=== PATIENT | female | born 1940 | race Caucasian/White ===

== ENCOUNTER 2020-12-07 16:55 | Outpatient (REF) | payer MEDICARE, BC, SELFPAY ==
--- NOTE | ~2020-12-07 | MR_ITS ---
EXAMINATION: MR ABDOMEN WITHOUT AND WITH CONTRAST CLINICAL INFORMATION: Renal cyst COMPARISON: None. TECHNIQUE: MR abdomen was performed without and with use of 8.5 mL intravenous Gadavist gadolinium contrast. Postcontrast images are performed in multiphase dynamic sequences. Imaging was performed in 3 planes. FINDINGS: LUNG BASES: The visualized lung bases are unremarkable. LIVER, GALLBLADDER, AND BILIARY TREE: The liver is normal in size, smooth in contour, and normal in signal. No focal hepatic lesion or biliary ductal dilatation is present. The gallbladder is unremarkable with no evidence of gallbladder wall thickening, or obvious pericholecystic inflammatory changes. PANCREAS: Unremarkable. SPLEEN: Normal. ADRENAL GLANDS: Normal. KIDNEYS AND URETERS: There are two small 5 mm simple appearing cysts in the upper pole of the right kidney. There is a 1.1 x 1.2 cm lesion in the anterior mid pole of the right kidney. This is slightly low signal on T1-weighted sequences and slightly high signal on T2-weighted sequences. This demonstrates stellate septations with enhancement suggestive of a complex Bosniak type III cyst. There is mild fullness of the right renal collecting system. The left kidney is normal appearing. GASTROINTESTINAL TRACT: No bowel obstruction. There may be diverticulosis of the colon. No ascites or fluid collection. ABDOMINAL WALL: There is a small umbilical hernia containing fat. LYMPH NODES: No lymphadenopathy. VASCULAR: Unremarkable. OSSEOUS STRUCTURES: Marrow signal normal. There is scoliosis and degenerative changes of the spine. MR/MR abdomen wo/w con IMPRESSION: 1.1 x 1.2 cm complex right renal cyst with enhancing thickened septations. 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 Surgical excision recommended. Small simple cysts in the upper pole of the rectum right kidney. Mild fullness of the right renal collecting system.
[2020-12-07 17:38] LABS: Blood Urea Nitrogen 11 mg/dL (9-16); Estimated Glomerular Filt Rate > 60
== END 2020-12-07 16:56 | disposition home or self-care (01) ==
LOC: HO.MRI 16:55
PROVIDERS: PCP Internal Medicine; Visit Provider Urology
DX: N28.1 Cyst of kidney, acquired (principal)
CPT/HCPCS: 36415; 74183; 82565; 84520; A9585

== ENCOUNTER → 2021-02-10 09:06 | Outpatient (BNVA) | payer MEDICARE, BC, SELFPAY | DX: N28.1 Cyst of kidney, acquired (principal) | CPT/HCPCS: Q3014 ==

== ENCOUNTER 2021-12-11 16:47 | Outpatient (REF) | payer MEDICARE, BC, SELFPAY ==
[2021-12-11 18:17] LABS: Blood Urea Nitrogen 22 mg/dL (9-16); Estimated Glomerular Filt Rate > 60
== END 2021-12-11 16:48 | disposition home or self-care (01) ==
LOC: HO.LAB 16:47
PROVIDERS: PCP Internal Medicine
DX: N28.1 Cyst of kidney, acquired (principal)
CPT/HCPCS: 36415; 82565; 84520

== ENCOUNTER 2021-12-15 08:19 | Outpatient (REF) | payer MEDICARE, BC, SELFPAY ==
--- NOTE | ~2021-12-15 | CT_ITS ---
EXAMINATION: CT ABDOMEN WITHOUT AND WITH CONTRAST CLINICAL INFORMATION: Cyst of kidney. COMPARISON: MRI abdomen 12/09/2020. TECHNIQUE: Contiguous axial thin section helical images of the abdomen were performed before and after the administration of oral contrast and 85 mL of Omnipaque 350 intravenous contrast. The data set was reformatted in the coronal and sagittal planes and reviewed on an independent workstation. This CT examination was performed using dose optimization techniques as appropriate, variously including the following: *Automated exposure control *Adjustment of mA and/or kV according to patient size (this includes techniques or standardized protocols for targeted exams where dose is matched to indication/reason for exam; i.e. extremities or head) *Use of iterative reconstruction technique DLP: 607 mGy-cm FINDINGS: LUNG BASES: Minimal atelectasis/scarring is seen in the lingula. LIVER, GALLBLADDER, AND BILIARY TREE: The liver is homogeneous in density, normal size and contour. There is 3 mm focal calcification along the right hepatic dome. No focal lesion or intrahepatic ductal dilatation seen. PANCREAS: The pancreas is homogeneous in density, normal size. No focal lesion seen. SPLEEN: The spleen is unremarkable. ADRENAL GLANDS AND KIDNEYS: Bilateral adrenal glands are symmetrical and normal. Both kidney nephrograms are symmetrical and normal size. There is a 1.6 x 1.5 cm lesion upper/mid pole enhancing lesion in right kidney measuring 155 Hounsfield units on postcontrast study and 20 Hounsfield units on a precontrast exam not a simple cyst. There are punctate 3 mm cysts upper pole right kidney. No radiopaque calculi, caliectasis or hydronephrosis seen except for an extrarenal right kidney pelvis. BOWEL LOOPS: There is scattered stool and gas seen in the colon without any significant distention. LYMPH NODES: Normal. VASCULAR: Unremarkable. BONES: No lytic or sclerotic process seen. There is vacuum disc phenomenon at L3-L4 and L1-L2 disc levels with loss of disc height. CT/CT abdomen wo/w con IMPRESSION: 1.5 cm enhancing lesion midpole right kidney not a simple cyst. It is suspicious for primary renal lesion such as RCC. Recommend further evaluation. An extrarenal right kidney pelvis is seen. There are two punctate 3 mm cysts upper pole right kidney Fleischner guidelines were followed.
[2021-12-15] MEDS: iohexoL 350 MG/ML 100 ML INFUS..BTL IV (09:16)
== END 2021-12-15 08:20 | disposition home or self-care (01) ==
LOC: HO.CT 08:19
DX: N28.1 Cyst of kidney, acquired (principal)
CPT/HCPCS: 74170; Q9967

== ENCOUNTER → 2022-01-17 14:24 | Outpatient (BNVA) | payer MEDICARE, BC, SELFPAY | PROVIDERS: PCP Internal Medicine; Visit Provider Urology | DX: N28.1 Cyst of kidney, acquired (principal) | CPT/HCPCS: Q3014 ==

== ENCOUNTER 2023-02-06 11:04 | Outpatient (REF) | payer MEDICARE, BC, SELFPAY ==
--- NOTE | ~2023-02-06 | MR_ITS ---
EXAMINATION: MR ABDOMEN WITHOUT AND WITH CONTRAST CLINICAL INFORMATION: Kidney cyst COMPARISON: CT abdomen pelvis 12/15/2021 TECHNIQUE: MRI of the abdomen before and after the IV administration of 8 mL of Gadavist was obtained using routine sequences. FINDINGS: LUNG BASES: The visualized lung bases are unremarkable. KIDNEYS AND URETERS: Bosniak 1 benign-appearing bilateral renal cysts, no routine imaging follow-up recommended. Heterogeneous T2 signal heterogeneously enhancing right anterior midpole renal mass measuring 1.7 cm, previously 1.5 cm slightly increased in size and remains suspicious for renal cell carcinoma. GALLBLADDER: Unremarkable. LIVER AND BILIARY TREE: The liver is normal in signal and morphology. No suspicious liver lesion. No intra or extrahepatic biliary duct dilatation. PANCREAS: Unremarkable SPLEEN: Unremarkable ADRENAL GLANDS: Unremarkable GASTROINTESTINAL TRACT: Unremarkable. LYMPH NODES: No lymphadenopathy. VASCULAR: Circumaortic left renal vein. Single right renal artery and vein appear patent. ABDOMINAL WALL: Unremarkable. OSSEOUS STRUCTURES: Dextroconvex curvature of the lumbar spine. Multilevel degenerative disc disease. MR/MR kidney wo/w con IMPRESSION: 1. A 1.7 cm heterogeneously enhancing right anterior midpole renal mass, slightly increased in size from prior and remains suspicious for renal cell carcinoma. Recommend continued urologic evaluation and management.
[2023-02-06] MEDS: gadobutroL 10 ML VIAL IVPUSH (11:59)
== END 2023-02-06 11:05 | disposition home or self-care (01) ==
LOC: HO.MRI 11:04
PROVIDERS: Visit Provider Urology
DX: N28.1 Cyst of kidney, acquired (principal)
CPT/HCPCS: 74181; A9585

== ENCOUNTER 2023-03-01 11:05 | Outpatient (AMB) | payer MEDICARE, BC, SELFPAY ==
--- NOTE | 2023-03-01 11:06 | A.OFFVIS_ITS ---
Intake Intake Visit Reasons: 1Y MRI (KIDNEY)-(set) Intake Note: Patient is Present for Follow Up MRI Urology Medication: None Antibiotic Allergies: None Blood Thinners:None Pharmacy: [facility] Allergies No Known Allergies Allergy (Verified 03/01/23 11:09) Medication List - Last Reconciled 03/01/23 by Ash Esquivel MD anastrozole 1 mg PO DAILY exemestane 25 mg PO DAILY levothyroxine 25 mcg PO DAILY losartan 25 mg PO DAILY losartan 75 mg PO DAILY meloxicam 7.5 mg PO DAILY simvastatin 20 mg PO BEDTIME HPI HPI Comments History of Present Illness Details Betty is a very pleasant female. She is a patient of Dr. Cartagena. She is seen for the following urologic conditions - complex renal cyst Complex renal cyst follow-up Complex renal cyst Slight increase in size from prior year Continue with imaging Discussed potential for cryotherapy Imaging - 11/30 MRI 1.2 cm - 01/01 CT scan 1.6 cm with enhancement - 01/02 MRI 1.7cm enhancing right renal l esion Therapeutic plan - surveillance imaging [facility] Medical History History of high blood pressure Hyperdense renal cyst Microscopic hematuria Surgical History History of surgery Review of Systems Const Denies chills and Denies fever(s) Card Reports no additional complaints and Denies syncope Resp Denies cough GI Denies abdominal pain and Denies heartburn Reports as per HPI and Denies change in libido Neuro Denies syncope Psych Denies change in libido Endo Denies change in libido Physical Exam Const General: cooperative, healthy appearing, comfortable and no acute distress Orientation/consciousness: patient oriented x3 HEENT Face and sinus: Yes normal facial exam Mouth: moist mucous membranes Neck Neck: Yes normal visual inspection, Yes full ROM and Yes trachea midline Chest Chest palpation & inspection: normal inspection of the chest Resp Effort & Inspection: normal respiratory effort, able to speak in complete sentences and no respiratory distress GI Inspection: Yes normal to inspection Back/Spine/Pelvis Cervical Spine: normal cervical lordosis Thoracic/Lumbar Spine: thoracic and lumbar spine normal to inspection Skin General skin exam: no rashes or lesions noted Neuro General: patient oriented x3, gait normal, tone normal and moves all extremities Extrem General: Yes normal to inspection and Yes capillary refill normal Assessment & Plan Assessment & Plan (1) Complex renal cyst: Comment: Gonzalo Sapp Code(s): N28.1 - Cyst of kidney, acquired Plan Twelve month follow-up MRI Orders: Orders Blood Urea Nitrogen 364 Days N28.1 - Cyst of kidney, acquired MR kidney wo/w con 364 Days N28.1 - Cyst of kidney, acquired Creatinine 364 Days N28.1 - Cyst of kidney, acquired Patient Instructions: Imaging studies, laboratory and physical exam results were discussed and reviewed in detail. No major barriers to patient understanding were identified. An opportunity to ask questions regarding the treatment plan was provided. All questions were answered. The patient expressed understanding and agreement with the above treatment plan. The patient is aware they should contact our office by phone for worsening of their current condition or the appearance of new urologic symptoms. Compliance is encouraged with any medications and followup testing that is ordered. It is a privilege to participate in the urologic care of your patient. If you have any questions or concerns regarding treatment for the above conditions, or other urologic issues, please do not hesitate to contact me. The office telephone contact is [phone]. This note is constructed using voice recognition software. While every effort has been made to ensure accuracy training and development project leader errors may have been included. Yours sincerely, Dr Ash Esquivel MD, [facility] - Urology Providers of Expert, Compassionate Care for the Genitourinary System Coding Level of Care Code Est Pt Level 4 (88287) Diagnoses Complex renal cyst N28.1
== END 2023-03-01 11:41 | disposition home or self-care (01) ==
PROVIDERS: Visit Provider Urology
DX: N28.1 Cyst of kidney, acquired (principal)
CPT/HCPCS: 99214

== ENCOUNTER → 2023-03-01 11:05 | Outpatient (BNVA) | payer MEDICARE, BC, SELFPAY | PROVIDERS: Visit Provider Urology | DX: N28.1 Cyst of kidney, acquired (principal); R31.29 Other microscopic hematuria | CPT/HCPCS: 99212 ==

== ENCOUNTER 2024-02-28 11:15 | Outpatient (REF) | payer MEDICARE, BC, SELFPAY ==
--- NOTE | ~2024-02-28 | MR_ITS ---
EXAMINATION: MR ABDOMEN WITHOUT AND WITH CONTRAST CLINICAL INFORMATION: Renal cysts. COMPARISON: MRI dated February 06, 2023. TECHNIQUE: MR abdomen was performed without and with use of 7 mL intravenous Gadavist gadolinium contrast. Postcontrast images are performed in multiphase dynamic sequences. Imaging was performed in 3 planes. No reported immediate complications. FINDINGS: Submitted for interpretation on April 28, 2024. Limited by patient's breathing motion artifact. LIVER, GALLBLADDER, AND BILIARY TREE: Liver measures 13 cm. There is a 0.4 cm nonenhancing fluid signal characteristic lesion in the dome of the right hepatic lobe. Main portal veins, hepatic veins and intrahepatic portion of the IVC are patent. Gallbladder is fluid-filled. No pericholecystic fluid collection or gallbladder wall thickening. No intrahepatic or extrahepatic biliary ductal dilatation. PANCREAS: No focal mass. No peripancreatic fluid collection. No main pancreatic ductal dilatation. SPLEEN: 10 cm. No focal mass. ADRENAL GLANDS: No nodular lesions. KIDNEYS AND URETERS: Right kidney: There is a 1.8 cm exophytic hypointense T1, hyperintense T2, septated heterogeneously enhancing mass, anterior midportion. There are few scattered less than 0.9 cm nonenhancing fluid signal characteristic lesions, upper pole. No hydronephrosis. Normal enhancement pattern of the main renal vessels. No nodular lesions in the perinephric/pararenal compartment. Left kidney: There is a 0.7 cm, exophytic, isointense T1 and hyperintense T2 with focal hyperintense T2 component nonenhancing lesion in the lateral midportion There are few scattered, 0.5 cm and less nonenhancing fluid signal characteristic lesions throughout the renal parenchyma. No hydronephrosis. Main renal vessels are patent. No nodular enhancing lesion in the perinephric/pararenal compartment. GASTROINTESTINAL TRACT: Abundant stool. No intestinal obstruction pattern. No ascites. ABDOMINAL WALL: Small fat-containing umbilical hernia. LYMPH NODES: Nonspecific prominent less than 1 cm lymph nodes in the retroperitoneum/periaortic. VASCULAR: No aneurysm or dissection, abdominal aorta. Retroaortic trajectory of the left main renal vein. OSSEOUS STRUCTURES: Multilevel thoracolumbar spondylosis with incomplete ankylosis in the lower thoracic spine. Grade 1 anterolisthesis L4-5. S-shaped curvature of the thoracolumbar spine. Subcentimeter cyst in the right acetabulum. MR/MR abdomen wo/w con IMPRESSION: Bosniak type IV lesion, right kidney. Concerning for malignancy. Bosniak type II F lesion, left kidney. Electronically signed by: Murphy Ayers MD 04/28/2024 09:32 AM EST
[2024-02-28] MEDS: gadobutroL 7.5 ML VIAL IVPUSH (12:07)
== END 2024-02-28 11:16 | disposition home or self-care (01) ==
LOC: HO.MRI 11:15
PROVIDERS: Visit Provider Urology
DX: N28.1 Cyst of kidney, acquired (principal)
CPT/HCPCS: 74183; A9585

== ENCOUNTER → 2024-02-28 11:30 | Outpatient (BNV) | payer MEDICARE, BC, SELFPAY | PROVIDERS: Visit Provider Radiology Diagnostic Radiology | DX: N28.1 Cyst of kidney, acquired (principal) | CPT/HCPCS: 74183 ==

== ENCOUNTER 2024-03-04 09:26 | Outpatient (AMB) | payer MEDICARE, BC, SELFPAY ==
--- NOTE | 2024-03-04 09:32 | MHC.OFFVIS ---
Intake Visit Reasons: 1Y MRI(02/27) Intake Note: Patient is present for Kidney MRI Follow up Urology Med: None Antibiotic Allergy: None Blood Thinner: None Volcanologist Required: No Accompanied by: Self / Same As Patient Allergies No Known Allergies Allergy (Verified 03/04/24 09:34) HPI Comments Details: Betty is a very pleasant female. She is a patient of Dr. Cartagena. She is seen for the following urologic conditions - complex renal cyst Complex renal cyst follow-up MRI complete Follow-up 12 months Complex renal cyst Slight increase in size from prior year Continue with imaging Discussed potential for cryotherapy Imaging - 11/30 MRI 1.2 cm - 01/01 CT scan 1.6 cm with enhancement - 01/02 MRI 1.7cm enhancing right renal lesion - 01/03 MRI 1.7 cm enhancing right renal lesion stability remains Therapeutic plan - surveillance imaging [facility] Medical History History of high blood pressure Microscopic hematuria Hyperdense renal cyst Surgical History History of surgery Review of Systems Const Denies chills and Denies fever(s) Card Reports no additional complaints and Denies syncope Resp Denies cough GI Denies abdominal pain and Denies heartburn Reports as per HPI and Denies change in libido Neuro Denies syncope Psych Denies change in libido Endo Denies change in libido Physical Exam Const General: cooperative, healthy appearing, comfortable and no acute distress Orientation/consciousness: patient oriented x3 HEENT Face and sinus: Yes normal facial exam Mouth: moist mucous membranes Neck Neck: Yes normal visual inspection, Yes full ROM and Yes trachea midline Chest Chest palpation & inspection: normal inspection of the chest Resp Effort & Inspection: normal respiratory effort, able to speak in complete sentences and no respiratory distress GI Inspection: Yes normal to inspection Back/Spine/Pelvis Cervical Spine: normal cervical lordosis Thoracic/Lumbar Spine: thoracic and lumbar spine normal to inspection Skin General skin exam: no rashes or lesions noted Neuro General: patient oriented x3, gait normal, tone normal and moves all extremities Extrem General: Yes normal to inspection and Yes capillary refill normal Assessment & Plan Assessment & Plan (1) Complex renal cyst: Comment: Gonzalo 3 Code(s): N28.1 - Cyst of kidney, acquired Category: Medical Plan Twelve month follow-up Orders: Orders MR abdomen wo/w con 1 Year N28.1 - Cyst of kidney, acquired Blood Urea Nitrogen 364 Days N28.1 - Cyst of kidney, acquired Creatinine 364 Days N28.1 - Cyst of kidney, acquired Patient Instructions: Imaging studies, laboratory and physical exam results were discussed and reviewed in detail. No major barriers to patient understanding were identified. An opportunity to ask questions regarding the treatment plan was provided. All questions were answered. The patient expressed understanding and agreement with the above treatment plan. The patient is aware they should contact our office by phone for worsening of their current condition or the appearance of new urologic symptoms. Compliance is encouraged with any medications and followup testing that is ordered. It is a privilege to participate in the urologic care of your patient. If you have any questions or concerns regarding treatment for the above conditions, or other urologic issues, please do not hesitate to contact me. The office telephone contact is [phone]. This note is constructed using voice recognition software. While every effort has been made to ensure accuracy press tender short goods errors may have been included. Yours sincerely, Dr Ash Esquivel MD, [facility] - Urology Providers of Expert, Compassionate Care for the Genitourinary System Coding Level of Care Code Est Pt Level 4 (89518) Diagnoses Complex renal cyst N28.1
== END 2024-03-04 10:00 | disposition home or self-care (01) ==
PROVIDERS: PCP Internal Medicine; Visit Provider Urology
DX: N28.1 Cyst of kidney, acquired (principal)
CPT/HCPCS: 99214

== ENCOUNTER → 2024-03-04 09:26 | Outpatient (BNVA) | payer MEDICARE, BC, SELFPAY | PROVIDERS: PCP Internal Medicine; Visit Provider Urology | DX: N28.1 Cyst of kidney, acquired (principal) | CPT/HCPCS: 99212 ==

== ENCOUNTER → 2025-03-01 11:06 | Outpatient (BNV) | payer MEDICARE, BC, SELFPAY | PROVIDERS: PCP Family Medicine; Visit Provider Radiology Diagnostic Radiology | DX: N28.89 Other specified disorders of kidney and ureter (principal); N28.1 Cyst of kidney, acquired | CPT/HCPCS: 74183 ==

== ENCOUNTER 2025-03-01 11:10 | Outpatient (REF) | payer MEDICARE, BC, SELFPAY ==
--- NOTE | ~2025-03-01 | MR_ITS ---
EXAMINATION: MR ABDOMEN WITHOUT THEN WITH IV CONTRAST HISTORY: N28.1 - Cyst of kidney, acquired COMPARISON: There are no prior studies available for comparison. TECHNIQUE: Axial in and out of phase T1-weighted gradient echo, axial diffusion weighted, and axial and coronal HASTE T2 with fat saturation images were obtained through the abdomen. Subsequently, fat suppressed axial and coronal T1-weighted images were obtained after the intravenous administration of 7 mL Gadavist. FINDINGS: Liver: There is no loss of signal intensity in the liver on opposed phase imaging to suggest steatosis. There is no enhancing liver mass. The hepatic and portal veins are patent. There is no intrahepatic biliary dilatation. Gallbladder/biliary tree: No gallstones are identified. The common bile duct is normal in caliber. No intraluminal filling defects are identified to suggest choledocholithiasis. Spleen: The spleen is unremarkable. Pancreas: The pancreas is unremarkable. There is no enhancing pancreatic mass. The pancreatic duct is normal in caliber. Adrenals: The adrenal glands are unremarkable. Kidneys: There are tiny subcentimeter cyst at the upper pole of the right kidney. Again seen is a 1.7 cm enhancing mass at the anterior aspect of the interpolar region of the right kidney, highly suspicious for neoplasm. The size is unchanged from the prior study, but increased since 12/07/2020. The left kidney is unremarkable. There is no hydronephrosis. Lymph nodes: There is no retroperitoneal lymphadenopathy in the upper abdomen. Fluid: There is no ascites in the upper abdomen. Visualized bowel: The visualized small and large bowel loops are unremarkable in appearance. Visualized bones: There is scoliosis of the spine. MR/MR abdomen wo/w con IMPRESSION: 1.4 cm enhancing right renal mass, highly suspicious for neoplasm. This is unchanged in size from the most recent prior study. Continued follow-up is recommended if no surgery is planned. Electronically signed by: Vikas Gutiérrez MD 03/01/2025 12:31 PM EDT
--- OUTSIDE RECORDS SUMMARY | 2025-03-01 13:41 | XMS_ITS | Encounter Summary ---
Author Organization [facility] Address [address] [place] [id number] Phone Care Team Providers Care Command And Control Specialist Name Role Phone Kenneth Flowers MD Primary Care Provider Kenneth Flowers MD Unavailable Mira Xavier MD Primary Care Provider [phone] Encounter Details Date Type Department Care Team (Late st Contact Info) Description 11/18/2018 Procedure Pass [facility] IMG OUTSIDE IMG [address] [place] [address] Social History Tobacco Use Types Packs/Day Years Used Date Smoking Tobacco: Never Assessed Comments Unknown Sex and Gender Information Value Date Recorded Sex Assigned at Not on file Legal Sex Female 6:09 PM EST Gender Identity Not on file Sexual Orientation Not on file documented as of this encounter Plan of Treatment Upcoming Encounters Date Type Department Care Team (Late st Contact Info) Description 03/02/2025 10:[address] [facility] [address] [place] [address] Roni Huynh DPM [address] [place] [id number] [email or web address] 03/02/2025 10:30 AM EDT Office Visit [facility] Orthopedics [facility] [address] [place] [address] Roni Huynh, DPM [address] [place] [address] [email or web address] documented as of this encounter Visit Diagnoses Not on filedocumented in this encounter Care Teams Command And Control Specialist Relationship Specialty Start Date End Date Kenneth Flowers MD [address] [place] [address] PCP - General Internal Medicine 11/05/18 02/14/25 Mira Xavier MD [address] [place] [id number] PCP - General Family Medicine 02/15/25 Kenneth Flowers MD [address] [place] [id number] Referring Physician Internal Medicine 11/05/18 documented as of this encounter Additional Source Comments The information contained in this document represents components of the legal health record. It is not the complete legal health record.[facility]
--- OUTSIDE RECORDS SUMMARY | 2025-03-01 13:41 | XMS_ITS | Patient Health Record ---
Author Organization [facility] Address [address] [facility] [place] [address] Care Team Providers Care Hunter Name Role Phone Mckinley Jason MA Primary Care Provider Unavailab jesus LizandrojeseniaJuanito knutson Unavailable [phone] Reason For Referral No Information Medications Medication SIG (Take, Route, Frequency, Duration) Notes Start Date End Date Status Simvastatin 20 MG 1 tablet in the even ing Orally Once a day; Duration: 30 day(s) Active Lisinopril 2.5 MG 1 tablet Orally Once a day; Duration: 30 day(s) Active Piroxicam 20 MG 1 capsule with food Orally Once a day; Duration: 30 day(s) 03/11/2012 Active Levothyroxine Sodium .025 mg as directed Orally Active Problems Problem Type SNOMED Code ICD Code Onset Dates Problem Status W/U Status Risk Notes Problem Disorder of joint of ankle and/or foot (750845515) Arthritis - Degenerative (719.97) Active confirmed Problem Neuralgia - Neuritis (729.2) Active confirmed Problem Hallux valgus (043247835) Hallux Valgus (735.0) Active confirmed Problem Hammer toe (335543222) Hammer toe (735.4) Active confirmed Problem 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, Congenital (754.61) Active confirmed Problem Pain in limb (98439396) Pain in Limb (729.5) Active confirmed Plan Of Treatment Pending Test Test Name Order Date X ray : Foot, left 2V 01/29/2012 X ray : Foot, right 2V 01/29/2012 Insurance Providers Payer Name Payer Address Payer Phone Subscriber Number Group Number Insured Name Patient Relationship to Insured Coverage Start Date Coverage End Date Medicare National [employer]t [employer] [address] Emiliajamal ELZA velazquez [phone] [id number] Betty Mtz Self - patient is the insured [address] [facility] [employer] Others [address] [place] [address] [phone] [id number] Betty Mtz Self - patient is the insured Medical (General) History Medical History History ICD Code chicken pox high blood pressure hypercholesterolemia measles mumps thyroid disorder Surgical History Surgery Date(Month/Year) bladder surgery 17 yrs section 1979, 1977, 1976
--- OUTSIDE RECORDS SUMMARY | 2025-03-01 13:42 | XMS_ITS ---
Author Name [facility] Organization Unknown Care Team Organization Name Specialty Phone Email Start Date End Da te [facility]) FRANCESCO STRAUSS Primary Care 11/09/2022 0712/2022 [facility]) [facility] Primary Care 11/09/2022 11/09/2022
--- OUTSIDE RECORDS SUMMARY | 2025-03-01 13:42 | XMS_ITS | Clinical Summary ---
Author Organization [facility] Address [address] [place] [address] Phone Care Team Providers Care Clothes Model Name Role Phone Kenneth Flowers MD Unavailable [phone] Mira Xavier MD Primary Care Provider [phone] Allergies No known active allergies Medications levothyroxine (SYNTHROID,LEVOT HROID) 25 MCG tablet Take 25 mcg by mouth daily. 2 09/05/2018 Active simvastatin (ZOCOR) 20 MG tablet Take 20 mg by mouth daily. 2 10/09/2018 Active lisinopril (PRINIVIL,ZESTRI L) 2.5 MG tablet Take 2.5 mg by mouth daily. 2 09/05/2018 Active ibuprofen (ADVIL,MOTRIN) 200 MG tablet Take 200 mg by mouth every 6 (six) hours as needed. Active aspirin 81 MG EC tablet Take 81 mg by mouth daily. Active Active Problems Problem Noted Date Diagnosed Date Cyst of right kidney 11/24/2018 Assessment & Plan (11/24/2018 4:30 PM EDT): Assessment: Betty Mtz is a 78 y.o. female with a recent diagnosis of a right renal mass concerning for renal cell carcinoma. The available imaging suggests organ confined disease. She has good performance status and normal renal function. Plan: 1. I spent this consultation with Betty Mtz discussing the natural history and management of renal cysts. I explained that renal cysts are common occuring in 10% to 35% of the general population being approximately twice as common in men compared to women. The size and number of renal cysts increase with age. Simple cysts (Bosniak I) tend to grow slowly over time, on average < 2mm a year. Faster growth rates have been observed in more complex cysts (Bosniak II-IV). Based on the available imaging, Ms. Mtz has a Bosniak 2F or 3 cyst. These cysts may harbor malignancy but they have a highly favorable natural history and an extremely low risk for metastatic disease. 2. We discussed the role and rationale for possible treatment options including active surveillance, ablative therapies, or surgery. With respect to surgery, we discussed the use of a partial and radical nephrectomy, as well as open and minimally invasive approaches. The risks of surgery including bleeding, infection, injury to surrounding structure, failure to cure, renal insufficiency, urinary extravasation, deep venous thrombosis, pulmonary embolism, stroke, heart attack, and loss of life were discussed. 3. Ms. Mtz is comfortable proceeding with active surveillance and will see her home urologist in 6 months with repeat imaging to monitor the right renal mass for interval changes. Encounters Date Type Department Care Team Description 02/25/2025 Orders Only [facility] Orth[facility]ics at [address] [address] Roni Huynh DPM Pain (Primary Dx) from Last 3 Months Family History Medical History Relation Comments Lymphoma Father Relation Status Comments Father Social History Tobacco Use Types Packs/Day Years Used Date Smoking Tobacco: Former Cigarettes Q uit: 1979 Education Answer Date Recorded Are you interested in more education? Not on esther e 09/23/2022 Are you concerned about learning? Not on file 09/23/2022 No 09/23/2022 No 09/23/2022 Digital Access Answer Date Recorded No 10/06/2022 No 10/06/2022 No 10/06/2022 Reliable internet access at home? Not on file 10/06/2022 Device with a working camera? Not on file Comments Unknown Sex and Gender Information Value Date Recorded Sex Assigned at Not on file Legal Sex Female 6:09 PM EST Gender Identity Not on file Sexual Orientation Not on file Last Filed Vital Signs Vital Sign Reading Time Taken Comments Blood Pressure 135/62 11/18/2018 2:34 PM EDT Pulse 84 11/18/2018 2:34 PM EDT Temperature 36.4 C (97.6 F) 11/18/2018 2:34 PM EDT Respiratory Rate 18 11/18/2018 2:34 PM EDT Oxygen Saturation 97% 11/18/2018 2:34 PM EDT Inhaled Oxygen Concentration - - Weight 79.6 kg (175 lb 7.8 oz) 11/18/2018 2:34 P M EDT dfci Height 159 cm (5' 2.6 ) 11/18/2018 2:34 PM EDT d correction Body Mass Index 31.49 11/18/2018 2:34 PM EDT Plan of Treatment Upcoming Encounters Date Type Department Care Team (Late st Contact Info) Description 03/02/2025 10:15 AM EDT Appointment [facility] [address] [place] [address] Roni Huynh DPM [address] [place] [phone] [email or web address] 03/02/2025 10:30 AM EDT Office Visit [facility] Orthopedics [facility] [address] [place] [address] Roni Huynh DPM [address] [place] [phone] [email or web address] Health Maintenance Due Date Last Done Comments Adult Td,Tdap Booster 1942 TSH LEVEL 1942 DEPRESSION SCREENING 1954 PNEUMOCOCCAL VACCINES (50+ years) (1 of 1 - PCV) 1992 OSTEOPOROSIS SCREENING INITI AL (ONE-TIME) 2007 CREATININE LEVEL 03/11/2015 03/11/2014 POTASSIUM LEVEL 03/11/2015 03/11/2014 RSV VACCINE (1 - 1-dose 75+ series) 2017 INFLUENZA VACCINE (#1) 2024 0, 02/25/2019, 03/06/2018 COVID-19 VACCINE (3 - 2024-2 6 season) 2025 07/02/2020, 06/10/2020 ZOSTER VACCINES Completed 06/17/2019, 03/21/2019 HEPATITIS A VACCINES Aged Out No long er eligible based on patient's age to complete this topic HIB VACCINES Aged Out No longer eligi ble based on patient's age to complete this topic MENINGOCOCCAL VACCINES (ACWY) Aged Out No longer eligible based on patient's age to complete this topic MENINGOCOCCAL VACCINES (B) Aged Out N o longer eligible based on patient's age to complete this topic Medical Devices Not on file Procedures Procedure Name Priority Date/Time Associated Diagnosis Comments HISTORICAL LAB Routine 03/11/2014 4:24 PM EDT from Last 3 Months or Most Recently Relevant to Health Maintenance Results * (ABNORMAL) Historical Lab (03/11/2014 4:24 PM EDT) LDL CHOLESTEROL 149(Abnor florina H) 0 - 129 mg/dL [facility] Comment: LDL cholesterol, mg/dL (mmol/L): <100 Optimal 100-129 Near or above optimal 130-159 Borderline high 160-189 High >=190 Very high SODIUM 137 136 - 145 mmol/L [facility] POTASSIUM 4.4 3.5 - 5.2 mmol/L [facility] CHLORIDE 97(Abnorm ally L) 99 - 109 mmol/L [facility] CARBON DIOXIDE 29 20 - 31 mmol/L [facility] ANION GAP 11 4.0 - 14.0 [facility] CALCIUM 9.6 8.7 - 10.4 mg/dL [facility] GLUCOSE 88 74 - 106 mg/dL [facility] UREA NITROGEN (BUN) 18 9 - 23 mg/dl [facility] CREATININE 0.54 0.5 - 1.3 mg/dL [facility] EST GLOM FILT RATE NON- A 118.3 [facility] Comment:Units: ml/min/1.73ms q EST GLOM FILT RATE AMERI 143.1 [facility] Comment: Units: ml/min/1.73msq Reference Table for Population Mean GFRs AGE AVERAGE GFR 20-29 116 ml/min/1.73msq 30-39 107 ml/min/1.73msq 40-49 99 ml/min/1.73msq 50-59 93 ml/min/1.73msq 60-69 85 ml/min/1.73msq 70+ 75 ml/min/1.73msq STAGE GFR* DESCRIPTION 1 90+ NORMAL KIDNEY FUNCTION 2 60-89 MILDLY REDUCED KIDNEY FUNCTION 3A 45-59 MODERATELY REDUCED KIDNEY 3B 30-44 FUNCTION 4 15-29 SEVERELY REDUCED KIDNEY FUNCTION 5 <15 OR ON VERY SEVERE, OR ENDSTAGE KIDNEY DIALYSIS FAILURE TOTAL PROTEIN 6.5 5.7 - 8.2 g/dL [facility] ALBUMIN 4.2 3.5 - 4.8 g/dL [facility] AST 23 6 - 40 U/L [facility] ALT 28 10 - 49 U/L [facility] ALKALINE PHOSPHATASE 67 27 - 129 U/L [facility] TOTAL BILIRUBIN 0.2 0.0 - 1.0 mg/dL [facility] TRIGLYCERIDE 163(Abnor florina H) <150 mg/dL [facility] Comment: Normal <150 mg/dL Border-high 150-199 mg/dL High triglycerides 200-499 mg/dL Very high triglycerides >=500 mg/dL HDL CHOLESTEROL 53 >40 mg/dL [facility] Comment: HDL cholesterol, mg/dL (mmol/L): <40 Low >=60 High 03/11/2014 4:24 PM EDT 03/11/2014 4:50 PM EDT us Conversion Provider Not In Sys LAB BLOOD ORDERAB LES Final Result [facility] [address] [facility] [place] [id number] from Last 3 Months or Most Recently Relevant to Health Maintenance Insurance MEDICARE PART A & B [facility] [place] [id number] MEDICARE PART A & [place] [id number] MEDICARE PART A & [place] [id number] MEDICARE PART A & B [place] OUT OF STATE PPO MEDICARE PART A & [place] [id number] MEDICARE PART A & B [facility] PPO MEDICARE PART A & B [place] OUT OF STATE PPO MEDICARE PART A & [place] [id number] MEDICARE PART A & B Member Subscriber Plan / Payer ( fective 2007-Present) Name:Trudy Mtzureen Member ID:[id number] Relation to Subscriber:Self Name:Betty Mtz Subscriber ID:[id number] Payer ID:[id number] Group ID:Not on file Type:Medicare Address: [facility] [address] [facility] PPO Care Teams Clothes Model Relationship Specialty Start Date End Date Mira Xavier MD [address] [place] [address] PCP - General Family Medicine 02/15/25 Kenneth Flowers MD [address] [place] [address] Referring Physician Internal Medicine 11/05/18 Additional Source Comments The information contained in this document represents components of the legal health record. It is not the complete legal health record.[facility]
--- OUTSIDE RECORDS SUMMARY | 2025-03-01 13:42 | XMS_ITS | Encounter Summary ---
Author Organization [facility] Address [address] [place] [address] Phone Care Team Providers Care Actimize Architect Name Role Phone Kenneth Flowers MD Unavailable [phone] Mira Xavier MD Primary Care Provider [phone] Encounter Details Date Type Department Care Team ([facility] st Contact Info) Description 02/25/2025 Orders Only [facility] Orthopedics at [place] [address] [place] [address] Roni Huynh, PRESTON [address] [place] [phone] [email or web address] Pain (Primary Dx) Social History Tobacco Use Types Packs/Day Years [...] Info) Description 03/02/2025 10:15 AM EDT Appointment [facility] [address] [place] [address] Roni Huynh, DPM [address] [place] [address] [email or web address] 03/02/2025 10:30 AM EDT Office Visit [facility] Orthopedics [facility] [address] [place] [address] Roni Huynh, PRESTON [address] [place] [address] [email or web address] Scheduled Orders Name Type Priority Associated Diagnoses Orde r Schedule XR Foot (Right) Imaging Routine Pain Expected: 03/02/2025, Expires: 02/25/2026 documented as of this encounter Visit Diagnoses Diagnosis Pain- Primary Generalized pain documented in this encounter Care Teams Actimize Architect Relationship Specialty Start Date End Date Mira Xavier MD [address] [place] [address] PCP - General Family Medicine 02/15/25 Kenneth Flowers MD [address] [place] [address] Referring Physician Internal Medicine 11/05/18 documented as of this encounter Additional Source Comments The information contained in this document represents components of the legal health record. It is not the complete legal health record.[facility]
--- OUTSIDE RECORDS SUMMARY | 2025-03-01 13:42 | XMS_ITS | Encounter Summary ---
Author Organization [facility] Address [address] [address] Care Team Providers Care Camp Dining Room Attendant Name Role Phone Pcp, Irma Primary Care Provider [phone] Encounter Details Date Type Department Care Team (Late st Contact Info) Description 11/12/[address] [facility] [address] [place] [id number] Gilma Tapia MD [address] [place] [address] Social History Tobacco Use Types Packs/Day Years Used Date Smoking Tobacco: Never Smokeless Tobacco: Never Alcohol Use Standard Drinks/Week Comments Yes 0 (1 standard drink = 0.6 oz pur e alcohol) Comments No Sex and Gender Information Value Date Recorded Sex Assigned at Female 01/01/2024 1:52 PM EDT Legal Sex Female 3:22 PM EDT Gender Identity Female 01/01/2024 1:52 PM EDT Sexual Orientation Straight 01/01/2024 1: 52 PM EDT documented as of this encounter Plan of Treatment Not on file documented as of this encounter Visit Diagnoses Not on filedocumented in this encounter Care Teams Camp Dining Room Attendant Relationship Specialty Start Date End Date Pcp, No [address] [place] [address] PCP - General Internal Medicine 11/01/22 documented as of this encounter
--- OUTSIDE RECORDS SUMMARY | 2025-03-01 13:43 | XMS_ITS | Clinical Summary ---
Author Organization [facility] Address [address] [place] [address] Care Team Providers Care Business Solutions Consultant Name Role Phone Pcp, No Primary Care Provider [phone] Allergies Active Allergy Reactions Criticality Noted Date Comments Celecoxib Hives 11/02/2022 Medications losartan (COZAAR) 50 MG tablet TAKE 1 & 1/2 TABLET BY MOUTH EVERY DAY FOR 90 DAYS 09/24/2022 Active levothyroxine (SYNTHROID) 25 MCG tablet Take ONE tablet (25 mcg total) by mouth once daily. 09/19/2022 Active ibuprofen (MOTRIN) 200 MG tablet Take ONE tablet (200 mg total) by mouth Every 6-8 hours As Needed. Active aspirin 81 MG EC tablet Take ONE tablet (81 mg total) by mouth. Active simvastatin (ZOCOR) 10 MG tablet Take ONE tablet (10 mg total) by mouth nightly. Active meloxicam (MOBIC) 15 MG tablet Take ONE tablet (15 mg total) by mouth daily. Active Family History Medical History Relation Name Comments No Known Problems Father No Known Problems Mother Relation Name Status Comments Father Mother Social History Tobacco Use Types Packs/Day Years Used Date Smoking Tobacco: Never Smokeless Tobacco: Never Tobacco Cessation:Counseling Given: Not Answered Alcohol Use Standard Drinks/Week Comments Yes 0 (1 standard drink = 0.6 oz pur e alcohol) Comments No Sex and Gender Information Value Date Recorded Sex Assigned at Female 01/01/2024 1:52 PM EDT Legal Sex Female 3:22 PM EDT Gender Identity Female 01/01/2024 1:52 PM EDT Sexual Orientation Straight 01/01/2024 1: 52 PM EDT Last Filed Vital Signs Vital Sign Reading Time Taken Comments Blood Pressure 131/80 11/02/2022 2:55 PM EDT Pulse 81 11/02/2022 2:55 PM EDT Temperature - - Respiratory Rate - - Oxygen Saturation - - Inhaled Oxygen Concentration - - Weight 83.5 kg (184 lb) 11/02/2022 2:55 PM EDT Height 157.5 cm (5' 2 ) 11/02/2022 2:55 PM EDT Body Mass Index 33.65 11/02/2022 2:55 PM EDT Plan of Treatment Health Maintenance Due Date Last Done Comments PNEUMOCOCCAL POLYSACCHARIDE VACCINE AGE 65 AND OVER COVID-19 Vaccine ( season) 2025 INFLUENZA VACCINE 01/11/2025 Insurance [facility] [place] [id number] [facility] [place] [id number] [employer]Sled [facility] OTHER MEDICARE [facility] [place] [id number] [employer]Sled [facility] OTHER Member Subscriber Plan / Payer (Ef fective 2021-Present) Name:Smith Betty Relation to Subscriber:Spouse Name:JAQUELINE MTZ Date of :1897 (Home) Address: [address] [place] [id number] Payer ID:Not on file Type:Not on file Address: [place] [id number] [place] [id number] [place] OTHER MEDICARE [facility] OTHER MEDICARE Coupay PARLIER Coupay [facility] OTHER MEDICARE [facility] [place] [id number] [facility] Coupay [facility] [place] [id number] [facility] OTHER MEDICARE [facility] [place] [id number] [employer] OTHER Member Subscriber Plan / Payer (Ef fective 2021-Present) Name:Betty Mtz Relation to Subscriber:Spouse Name:JAQUELINE MTZ Date of :1897 (Home) Address: [address] [place] [address] Payer ID:Not on file Type:Not on file Address: [address] [id number] [place] [address] [employer] OTHER MEDICARE [id number] [place] [address] OTHER MEDICARE [employer] OTHER MEDICARE BL[employer] OTHER MEDICARE [place] OTHER MEDICARE [employer]led [place] OTHER MEDICARE [facility] OTHER MEDICARE [place] OTHER MEDICARE [place] OTHER MEDICARE [facility] OTHER MEDICARE [employer] OTHER MEDICARE BL[employer] OTHER MEDICARE [place] OTHER MEDICARE Coupay [employer] OTHER MEDICARE [facility] OTHER MEDICARE [place] [phone] [place] [id number] [facility] [place] [id number] [facility] OTHER MEDICARE [facility] [place] [id number] [place] [id number] [employer] OTHER MEDICARE [employer]led [facility] OTHER MEDICARE [facility] Coupay [facility] OTHER MEDICARE [facility] Coupay [facility] OTHER MEDICARE [facility] OTHER MEDICARE Coupay [employer] OTHER MEDICARE Coupay [employer] OTHER MEDICARE [facility] OTHER MEDICARE [employer] OTHER MEDICARE BLUE [employer] BL[employer] OTHER MEDICARE [place] OTHER MEDICARE Record[employer]led [place] OTHER MEDICARE [facility] BLUE [facility] OTHER MEDICARE RecordSled [employer] OTHER MEDICARE Record[employer]led [place] OTHER MEDICARE [facility] [place] [place] [id number] [employer] [id number] [employer] [place] [phone] [place] [id number] [place] OTHER MEDICARE [facility] OTHER MEDICARE [place] OTHER MEDICARE RecordSled [facility] [place] [id number] [facility] OTHER [place] [id number] [facility] Coupay [facility] OTHER Member Subscriber Plan / Payer (Ef fective 2021-Present) Name:Betty Mtz Relation to Subscriber:Spouse Name:JAQUELINE MTZ Date of :1897 (Home) Address: [address] [place] [address] Payer ID:Not on file Type:Not on file Address: [place] [id number] MEDICARE [facility] OTHER [place] [id number] [employer] OTHER MEDICARE [place] OTHER MEDICARE [facility] OTHER MEDICARE [facility] OTHER MEDICARE [facility] OTHER MEDICARE Coup[employer] OTHER MEDICARE Coupay [employer] OTHER MEDICARE [id number] [place] [address] OTHER MEDICARE [facility] [place] [phone] [employer] BL[employer] OTHER MEDICARE [facility] [place] [id number] [employer] BL[employer] OTHER MEDICARE [employer]led [employer] OTHER MEDICARE Coupay CROSS Coupay [place] OTHER MEDICARE [facility] OTHER MEDICARE MEDEM [employer] OTHER MEDICARE Record[employer]led [place] OTHER MEDICARE [facility] OTHER [place] [id number] [employer] OTHER [place] [id number] [employer] OTHER MEDICARE [facility] OTHER MEDICARE Coupay [employer] OTHER MEDICARE Coupay [employer] Coupay [facility] OTHER MEDICARE [facility] [id number] [place] [phone] [facility] Coupay [facility] OTHER Member Subscriber Plan / Payer (Ef fective 2021-Present) Name:Betty Mtz Relation to Subscriber:Spouse Name:JAQUELINE MTZ Date of :1897 (Home) Address: [address] [place] [address] [place] [address] Payer ID:Not on file Type:Not on file Address: [place] [id number] [place] [id number] [place] [phone] [facility] [place] [id number] [facility] [place] [phone] C[employer] OTHER MEDICARE Coupay [employer] OTHER MEDICARE Coupay [employer] OTHER MEDICARE Coupay [employer] Coupay [facility] OTHER MEDICARE [facility] OTHER MEDICARE C[place] [phone] Coup[employer] OTHER MEDICARE [id number] [place] [address] OTHER MEDICARE [employer] BL[employer] OTHER MEDICARE [employer] BL[employer] OTHER MEDICARE [place] OTHER MEDICARE Coupay [employer] OTHER MEDICARE [facility] OTHER MEDICARE [place] [id number] [employer] [phone] [facility] [place] [id number] [facility] [place] [id number] [employer] [facility] OTHER MEDICARE [facility] [place] [id number] [employer] [facility] OTHER Member Subscriber Plan / Payer (Ef fective 2021-Present) Name:Smith Betty Relation to Subscriber:Spouse Name:JAQUELINE MTZ Date of :1897 (Home) Address: [address] [place] [address] Payer ID:Not on file Type:Not on file Address: [place] [id number] [place] [phone] [place] OTHER MEDICARE [facility] OTHER MEDICARE Coupay PARLIER Coupay [facility] OTHER MEDICARE [facility] [place] [id number] [facility] Coupay [facility] [place] [id number] [facility] OTHER MEDICARE [facility] [place] [phone] [employer] OTHER Member Subscriber Plan / Payer (Ef fective 2021-Present) Name:Betty Mtz Relation to Subscriber:Spouse Name:JAQUELINE MTZ Date of :1897 (Home) Address: [address] [place] [address] Payer ID:Not on file Type:Not on file Address: [address] [id number] [place] [address] [employer] OTHER MEDICARE [id number] [place] [address] OTHER MEDICARE [employer] OTHER MEDICARE BL[employer] OTHER MEDICARE [place] OTHER MEDICARE [employer] OTHER MEDICARE [facility] OTHER MEDICARE [place] OTHER MEDICARE [place] OTHER MEDICARE [facility] OTHER MEDICARE [employer] OTHER MEDICARE BL[employer] OTHER MEDICARE [place] OTHER MEDICARE Coupay [employer] OTHER MEDICARE [facility] OTHER MEDICARE [employer] [address] [place] [id number] [facility] [place] [phone] [facility] OTHER MEDICARE [facility] [place] [id number] [place] [phone] [employer] OTHER MEDICARE RecordSled [facility] OTHER MEDICARE [facility] Coupay [facility] OTHER MEDICARE [facility] Coupay [facility] OTHER MEDICARE [facility] OTHER MEDICARE Coupay [employer] OTHER MEDICARE Coupay [employer] OTHER MEDICARE [facility] OTHER MEDICARE [employer] OTHER MEDICARE BL[employer] OTHER MEDICARE [place] OTHER MEDICARE Record[employer]led [place] OTHER MEDICARE [facility] BLUE [facility] OTHER MEDICARE Record[employer]led [employer] OTHER MEDICARE Record[employer]led [place] OTHER MEDICARE [facility] [place] [place] [id number] [employer] [place] [phone] [employer] [place] [id number] [place] [id number] [employer] OTHER MEDICARE [facility] OTHER MEDICARE [place] OTHER MEDICARE RecordSled [facility] OTHER [place] [id number] [facility] OTHER [place] [id number] [facility] Coupay [facility] OTHER Member Subscriber Plan / Payer (Ef fective 2021-Present) Name:Betty Mtz Relation to Subscriber:Spouse Name:JAQUELINE MTZ Date of :1897 (Home) Address: [address] [place] [id number] Payer ID:Not on file Type:Not on file Address: [place] [id number] MEDICARE [facility] OTHER [place] [phone] [employer] OTHER MEDICARE [place] OTHER MEDICARE [facility] OTHER MEDICARE [facility] OTHER MEDICARE [facility] OTHER MEDICARE Coupay [employer] OTHER MEDICARE Coupay [employer] OTHER MEDICARE [id number] [place] [address] OTHER MEDICARE [facility] [place] [id number] [employer] OTHER MEDICARE [facility] [place] [id number] [employer] BL[employer] OTHER MEDICARE [employer]led [employer] OTHER MEDICARE Coupay CROSS Coupay [employer] OTHER MEDICARE [facility] OTHER MEDICARE MEDEM [employer] OTHER MEDICARE Record[employer]led [place] OTHER MEDICARE [facility] OTHER [place] [id number] [employer] OTHER [place] [id number] [employer] OTHER MEDICARE [facility] OTHER MEDICARE Coupay [employer] OTHER MEDICARE Coupay [employer] Coupay [facility] OTHER MEDICARE [facility] [place] [id number] [place] [phone] [facility] Coupay [facility] OTHER Member Subscriber Plan / Payer (Ef fective 2021-Present) Name:Betty Mtz Relation to Subscriber:Spouse Name:JAQUELINE MZT Date of :1897 (Home) Address: [address] [place] [address] [place] [address] Payer ID:Not on file Type:Not on file Address: [place] [id number] [place] [phone] [place] [phone] [facility] OTHER [place] [id number] [place] [address] Care Teams Business Solutions Consultant Relationship Specialty Start Date End Date Pcp, No [address] [place] [address] PCP - General Internal Medicine 11/01/22
== END 2025-03-01 11:11 | disposition home or self-care (01) ==
LOC: HO.MRI 11:10
PROVIDERS: PCP Family Medicine; Visit Provider Urology
DX: N28.1 Cyst of kidney, acquired (principal)
CPT/HCPCS: 74183; A9585

== ENCOUNTER 2025-03-04 11:39 | Outpatient (AMB) | payer MEDICARE, BC, SELFPAY ==
--- OUTSIDE RECORDS SUMMARY | 2025-03-02 10:30 | XMS_ITS | Encounter Summary ---
Author Organization [facility] Address [address] [place] [address] Phone Care Team Providers Care Tool Builder Name Role Phone Kenneth Flowers MD Unavailable Mira Xavier MD Primary Care Provider [phone] Reason for Visit * Reason Comments New Patient R foot Encounter Details Date Type Department Care Team (Late st Contact Info) Description 03/02/2025 10:30 AM EDT Office Visit [facility] [address] [address] Roni Huynh DPM [address] [place] [address] [email or web address] Hammer toe of right foot (Primary Dx); Hallux valgus of right foot Social History Tobacco Use Types Packs/Day Years Used Date Smoking Tobacco: Former Cigarettes Q uit: 1978 Tobacco Cessation:Counseling Given: Not Answered Education Answer Date Recorded Are you interested in more education? Not on esther e 09/23/2022 Are you concerned about learning? Not on file 09/23/2022 No 09/23/2022 No 09/23/2022 Digital Access Answer Date Recorded No 10/06/2022 No 10/06/2022 Reliable internet access at home? Not on file 10/06/2022 Device with a working camera? Not on file Comments Unknown Sex and Gender Information Value Date Recorded Sex Assigned at Not on file Legal Sex Female 6:09 PM EST Gender Identity Not on file Sexual Orientation Not on file documented as of this encounter Progress Notes * Roni Huynh DPM - 03/02/2025 10:30 AM EDT [facility] Date of Service: 03/02/25 Patient: Betty Mtz : 1940 Chief Complaint: Betty is a 84 y.o. female who presents complaining of mild sharp/stabbing pain from hammer toe, 2nd and 3rd toe, on the right foot. Worse with walking and shoe wear. It has been bothering her daily for a few months now. She has had prior bunion surgery on the left. ? Physical Examination: Healthy, appears stated age, no distress, nonseptic. Normal respiratory effort. Gait analysis: Normal, nonantalgic. Psychiatric: Alert, oriented, normal mood and affect. Cardiovascular: no edema, no varicosities. Pulses 2/4 both feet, Nails: Normal. Neurological: Light touch normal, Contracture deformity, 2nd and 3rd Right . Bunion deformity right foot Assessment: Hammer toe, 2nd and 3rd Right Hallux valgus right Plan: - Discussed conservative care with patient, recommend wider shoes and a bigger toe box Xray reviewed and independently interpreted and showing contracted digit and prominent first metatarsal head and hallux deviated laterally consistent with hammertoe and hallux valgus Discussed hammertoe correction 2 and 3 right explained risk and complication procedure including bad result, recurrence and infection. Follow-up for surgery Also Reviewed: Outpatient Medications as of 03/02/2025 Medication aspirin 81 MG EC tablet levothyroxine (SYNTHROID,LEVOTHROID) 25 MCG tablet losartan 10 mg/mL Susp simvastatin (ZOCOR) 20 MG tablet ibuprofen (ADVIL,MOTRIN) 200 MG tablet lisinopril (PRINIVIL,ZESTRIL) 2.5 MG tablet No current facility-administered medications on file as of 03/02/2025. Allergies Allergen Reactions Celecoxib Hives Lisinopril Past Medical History: Diagnosis Date Bilateral bunions BPPV (benign paroxysmal positional vertigo) Central stenosis of spinal canal L3/L4 HTN (hypertension) Hypercholesteremia Hypothyroidism IBS (irritable bowel syndrome) Knee MCL sprain Roldan's neuroma Obesity Plantar fasciitis Raynauds disease Tear of lateral meniscus of knee Past Surgical History: Procedure Laterality Date Bladder lift BUNIONECTOMY Left SECTION Past Surgical History: Procedure Laterality Date Bladder lift BUNIONECTOMY Left SECTION family history includes Lymphoma in her father. Social History Social History Narrative Not on file Roni Huynh D.P.M. documented in this encounter Plan of Treatment Not on file documented as of this encounter Visit Diagnoses Diagnosis Hammer toe of right foot- Primary Hallux valgus of right foot documented in this encounter Care Teams Tool Builder Relationship Specialty Start Date End Date Mira Xavier MD [address] [place] [address] PCP - General Family Medicine 02/15/25 Kenneth Flowers MD [address] [place] [address] Referring Physician Internal Medicine 11/05/18 documented as of this encounter Additional Source Comments The information contained in this document represents components of the legal health record. It is not the complete legal health record[facility]
--- NOTE | 2025-03-04 11:38 | A.OFFVIS_ITS ---
Intake Visit Reasons: 1y/MRI/labs Intake Note: Patient is present for 1 yr follow up Urology Med: Meloxicam Antibiotic Allergy: None Blood Thinner: None Imaging done : MRI 03/01/25 Neurology Hospitalist Required: No Accompanied by: Self / Same As Patient Allergies No Known Allergies Allergy (Verified 03/04/25 11:40) HPI Comments Details: Betty is a very pleasant female. She is a patient of Dr. Cartagena. She is seen for the following urologic conditions - complex renal cyst Complex renal cyst follow-up MRI complete Continue surveillance imaging Follow-up 12 months Complex renal cyst Slight increase in size from prior year Continue with imaging Discussed potential for cryotherapy Imaging - 11/30 MRI 1.2 cm - 01/01 CT scan 1.6 cm with enhancement - 01/02 MRI 1.7cm enhancing right renal lesion - 01/03 MRI 1.7 cm enhancing right renal lesion stability remains - 02/04 MRI 1.4 cm enhancing right renal mass, highly suspicious for neoplasm. This is unchanged in size from the most recent prior study. Continued follow-up is recommended if no surgery is planned Therapeutic plan - surveillance imaging [facility] Medical History History of high blood pressure Microscopic hematuria Hyperdense renal cyst Surgical History History of surgery Review of Systems Const Denies chills and Denies fever(s) Card Reports no additional complaints and Denies syncope Resp Denies cough GI Denies abdominal pain and Denies heartburn Reports as per HPI and Denies change in libido Neuro Denies syncope Psych Denies change in libido Endo Denies change in libido Physical Exam Const General: cooperative, healthy appearing, comfortable and no acute distress Orientation/consciousness: patient oriented x3 HEENT Face and sinus: Yes normal facial exam Mouth: moist mucous membranes Neck Neck: Yes normal visual inspection, Yes full ROM and Yes trachea midline Chest Chest palpation & inspection: normal inspection of the chest Resp Effort & Inspection: normal respiratory effort, able to speak in complete sentences and no respiratory distress GI Inspection: Yes normal to inspection Back/Spine/Pelvis Cervical Spine: normal cervical lordosis Thoracic/Lumbar Spine: thoracic and lumbar spine normal to inspection Skin General skin exam: no rashes or lesions noted Neuro General: patient oriented x3, gait normal, tone normal and moves all extremities Extrem General: Yes normal to inspection and Yes capillary refill normal Assessment & Plan Assessment & Plan (1) Complex renal cyst: Comment: Gonzalo 3 Code(s): N28.1 - Cyst of kidney, acquired Category: Medical Plan Twelve month follow-up renal MRI Orders: Orders MR abdomen wo/w con 1 Year N28.1 - Cyst of kidney, acquired Patient Instructions: This note is constructed using voice recognition software. While every effort has been made to ensure accuracy container packer operator errors may have been included. Imaging studies, laboratory and physical exam results were discussed and reviewed in detail. No major barriers to patient understanding were identified. An opportunity to ask questions regarding the treatment plan was provided. All questions were answered. The patient expressed understanding and agreement with the above treatment plan. The patient is aware they should contact our office by phone for worsening of their current condition or the appearance of new urologic symptoms. Compliance is encouraged with any medications and followup testing that is ordered. It is a privilege to participate in the urologic care of your patient. If you have any questions or concerns regarding treatment for the above conditions, or other urologic issues, please do not hesitate to contact me. The office telephone contact is [phone]. Sincerely, Dr Ash Esquivel MD, [facility] - Urology Compassionate Specialist Care for the Genitourinary System Coding Level of Care Code Est Pt Level 4 (94983) Complex visit Add On G2211 Diagnoses Complex renal cyst N28.1
--- OUTSIDE RECORDS SUMMARY | 2025-03-04 14:53 | XMS_ITS | Clinical Summary ---
Author Organization [facility] Surgery Address [address] [place] [address] Care Team Providers Care Horticulture Worker Name Role Phone Pcp, No Primary Care Provider [phone] Allergies Active Allergy Reactions Criticality Noted Date [...] ( season) 2025 INFLUENZA VACCINE 01/11/2025 Insurance [facility] [id number] [place] [place] [id number] [employer] [facility] OTHER [place]ICARE [place] [id number] [employer] [facility] OTHER Member Subscriber Plan / Payer (Ef fective 2021-Present) Name:Smith Betty Relation to Subscriber:Spouse Name:JAQUELINE MTZ Date of :1897 (Home) Address: [address] [place] [address] Payer ID:Not on file Type:Not on file Address: [place] [phone] [place] [id number] [employer] OTHER MEDICARE [facility] OTHER MEDICARE [employer] [facility] OTHER MEDICARE [facility] [place] [address] [facility] [employer] [facility] [place] [id number] [facility] OTHER MEDICARE [place] [address] [employer] OTHER Member Subscriber Plan / Payer (Ef fective 2021-Present) Name:Betty Mtz Relation to Subscriber:Spouse Name:JAQUELINE MTZ Date of :1897 (Home) Address: [address] [place] [address] Payer ID:Not on file Type:Not on file Address: [address] [id number] [place] [address] [employer] OTHER MEDICARE [id number] [place] [address] OTHER MEDICARE [employer] OTHER MEDICARE [employer] OTHER MEDICARE [employer] OTHER MEDICARE [employer] OTHER MEDICARE [facility] OTHER MEDICARE [employer] OTHER MEDICARE [employer] OTHER MEDICARE [facility] OTHER MEDICARE [employer] OTHER MEDICARE [employer] OTHER MEDICARE [employer] OTHER MEDICARE [employer] OTHER MEDICARE [facility] OTHER MEDICARE [employer] [place] [address] [place] [phone] [facility] [place] [phone] [facility] OTHER MEDICARE [facility] [place] [phone] [place] [phone] [employer] OTHER MEDICARE [employer] [facility] OTHER MEDICARE [facility] [employer] [facility] OTHER MEDICARE [facility] [employer] [facility] OTHER MEDICARE [facility] OTHER MEDICARE [employer] OTHER MEDICARE [employer] OTHER MEDICARE [facility] OTHER MEDICARE [employer] OTHER MEDICARE [employer] BL[employer] OTHER MEDICARE [employer] OTHER MEDICARE [employer] OTHER MEDICARE [facility] BLUE [facility] OTHER MEDICARE [employer] OTHER MEDICARE [employer] OTHER MEDICARE [facility] [place] [id number] [employer] [place] [id number] [employer] [place] [address] [employer] [address] [employer] OTHER MEDICARE [facility] OTHER MEDICARE [employer] OTHER MEDICARE [employer] [facility] OTHER [place] [id number] [facility] OTHER [place] [id number] [facility] [employer] [facility] OTHER Member Subscriber Plan / Payer (Ef fective 2021-Present) Name:Betty Mtz Relation to Subscriber:Spouse Name:JAQUELINE MTZ Date of :1897 (Home) Address: [address] [place] [address] Payer ID:Not on file Type:Not on file Address: [place] [phone] MEDICARE [facility] OTHER [place] [id number] [employer] OTHER MEDICARE [employer] OTHER MEDICARE [facility] OTHER MEDICARE [facility] OTHER MEDICARE [facility] OTHER MEDICARE [employer] OTHER MEDICARE [employer] OTHER MEDICARE [id number] [place] [address] OTHER MEDICARE [facility] [place] [address] [employer] BL[employer] OTHER MEDICARE [place] [address] [employer] BL[employer] OTHER MEDICARE [employer] OTHER MEDICARE [employer] OTHER MEDICARE [facility] OTHER MEDICARE [employer] OTHER MEDICARE [employer] OTHER MEDICARE [facility] OTHER MEDICARE [place] [address] [employer] OTHER MEDIC[place] [address] [employer] OTHER MEDICARE [facility] OTHER MEDICARE [employer] [facility] [employer] OTHER MEDICARE [employer] [facility] [employer] [facility] OTHER MEDICARE [facility] [place] [phone] [place] [address] [facility] [employer] [facility] OTHER Member Subscriber Plan / Payer (Ef fective 2021-Present) Name:Betty Mtz Relation to Subscriber:Spouse Name:JAQUELINE MTZ Date of :1897 (Home) Address: [address] [place] [address] [place] [address] Payer ID:Not on file Type:Not on file Address: [place] [phone] [place] [id number] [place] [address] [facility] [place] [id number] [facility] [place] [id number] [employer] OTHER MEDICARE [employer] BL[employer] OTHER MEDICARE [employer] [facility] [employer] OTHER MEDICARE [employer] [facility] [employer] [facility] OTHER MEDICARE [facility] OTHER MEDICARE [employer] [place] [id number] [employer] OTHER MEDICARE [id number] [place] [address] OTHER MEDICARE [employer] BL[employer] OTHER MEDICARE [employer] BL[employer] OTHER MEDICARE [employer] OTHER MEDICARE [employer] OTHER MEDICARE [facility] OTHER MEDICARE [employer] [place] [address] [employer] [place] [phone] [facility] [place] [phone] [facility] [place] [address] [employer] [facility] OTHER MEDICARE [place] [address] [employer] [facility] OTHER Member Subscriber Plan / Payer (Ef fective 2021-Present) Name:Smith Betty Relation to Subscriber:Spouse Name:JAQUELINE MTZ Date of :1897 (Home) Address: [address] [place] [address] Payer ID:Not on file Type:Not on file Address: [place] [phone] [place] [address] [employer] OTHER MEDICARE [facility] OTHER MEDICARE [employer] [employer] [facility] OTHER MEDICARE [facility] [place] [address] [facility] [employer] [facility] [place] [phone] [facility] OTHER MEDICARE [place] [address] [employer] OTHER Member Subscriber Plan / Payer (Ef fective 2021-Present) Name:Betty Mtz Relation to Subscriber:Spouse Name:JAQUEILNE MTZ Date of :1897 (Home) Address: [address] [place] [address] Payer ID:Not on file Type:Not on file Address: [address] [id number] [place] [address] [employer] OTHER MEDICARE [id number] [place] [address] OTHER MEDICARE [employer] OTHER MEDICARE [employer] OTHER MEDICARE [employer] OTHER MEDICARE [employer] OTHER MEDICARE [facility] OTHER MEDICARE [employer] OTHER MEDICARE [employer] OTHER MEDICARE [facility] OTHER MEDICARE [employer] OTHER MEDICARE [employer] OTHER MEDICARE [employer] OTHER MEDICARE [employer] OTHER MEDICARE [facility] OTHER MEDICARE [employer] [place] [address] [place] [phone] [facility] [phone] [facility] OTHER MEDICARE [facility] [phone] [place] [phone] [employer] OTHER MEDICARE [employer] [facility] OTHER MEDICARE [facility] [employer] [facility] OTHER MEDICARE [facility] [employer] [facility] OTHER MEDICARE [facility] OTHER MEDICARE [employer] OTHER MEDICARE [employer] OTHER MEDICARE [facility] OTHER MEDICARE [employer] OTHER MEDICARE [employer] OTHER MEDICARE [employer] OTHER MEDICARE [employer] OTHER MEDICARE [facility]UE [facility] OTHER MEDICARE [employer] OTHER MEDICARE [employer] OTHER MEDICARE [facility] [place] [id number] [employer] [place] [phone] [employer] [place] [address] [employer] [id number] [employer] OTHER MEDICARE [facility] OTHER MEDICARE [employer] OTHER MEDICARE [employer] [facility] OTHER MEDICARE [place] [phone] [facility] OTHER [place] [id number] [facility] [employer] [facility] OTHER Member Subscriber Plan / Payer (Ef fective 2021-Present) Name:Betty Mtz Relation to Subscriber:Spouse Name:JAQUELINE MTZ Date of :1897 (Home) Address: [address] [place] [address] Payer ID:Not on file Type:Not on file Address: [place] [phone] MEDICARE [facility] OTHER [place] [phone] [employer] OTHER MEDICARE [employer] OTHER MEDICARE [facility] OTHER MEDICARE [facility] OTHER MEDICARE [facility] OTHER MEDICARE [employer] OTHER MEDICARE [employer] OTHER MEDICARE [id number] [place] [address] OTHER MEDICARE [facility] [place] [address] [employer] OTHER MEDICARE [place] [address] [employer] BL[employer] OTHER MEDICARE [employer] OTHER MEDICARE [employer] OTHER MEDICARE [facility] OTHER MEDICARE [employer] OTHER MEDICARE [employer] OTHER MEDICARE [facility] OTHER MEDICARE [place] [phone] [employer] OTHER MEDICARE [place] [address] [employer] OTHER MEDICARE [facility] OTHER MEDICARE [employer] [facility] [employer] OTHER MEDICARE [employer] [facility] [employer] [facility] OTHER MEDICARE [facility] [place] [id number] [place] [address] [facility] [employer] [facility] OTHER Member Subscriber Plan / Payer (Ef fective 2021-Present) Name:Betty Mtz Relation to Subscriber:Spouse Name:JAQUELINE MTZ Date of :1897 (Home) Address: [address] [place] [address] [place] [address] Payer ID:Not on file Type:Not on file Address: [place] [phone] [place] [id number] [place] [address] [facility] OTHER [place]IC[place] [id number] [place] [address] Care Teams Horticulture Worker Relationship Specialty Start Date End Date Pcp, No [address] [place] [address] PCP - General Internal Medicine 11/01/22
--- OUTSIDE RECORDS SUMMARY | 2025-03-04 14:53 | XMS_ITS | Encounter Summary ---
Author Organization [facility] Surgery Address [address] [address] Care Team Providers Care Extrusion Bender Name Role Phone Pcp, Irma Primary Care Provider [phone] Encounter Details Date Type Department Care Team (Late st Contact Info) Description 11/12/[address] [facility] [address] [place] [id number] Gilma Tapia MD [address] [place] [address] Social History Tobacco Use Types Packs/Day Years [...] on filedocumented in this encounter Care Teams Extrusion Bender Relationship Specialty Start Date End Date Pcp, No [address] [place] [address] PCP - General Internal Medicine 11/01/22 documented as of this encounter
--- OUTSIDE RECORDS SUMMARY | 2025-03-04 14:53 | XMS_ITS | Patient Health Record ---
Author Organization [facility] Address [address] [facility] [place] [address] Care Team Providers Care Color Grinder Name Role Phone Mckinley Jason MA Primary Care Provider Unavailab jesus LizandrojeseniaJuanito knutson Unavailable [phone] Reason For Referral No Information Medications Medication [...] Disorder of joint of ankle and/or foot (901504128) Arthritis - Degenerative (719.97) Active confirmed Problem Neuralgia - Neuritis (729.2) Active confirmed Problem Hallux valgus (018989713) Hallux Valgus (735.0) Active confirmed Problem Hammer toe (087600223) Hammer toe (735.4) Active confirmed Problem Congenital pes planus (83617864) Flat Foot, Congenital (754.61) Active confirmed Problem Pain in limb (34608342) Pain in Limb (729.5) Active confirmed Plan [...] Inc [address] Emiliajamal ELZA velazquez [phone] [id number] Betty Mtz Self - patient is the insured 7 [facility] [employer] Others [address] [place] [address] [phone] [id number] Betty Mtz Self - patient is the insured Medical (General) History Medical History History ICD Code chicken pox high blood pressure hypercholesterolemia measles mumps thyroid disorder Surgical History Surgery Date(Month/Year) bladder surgery 17 yrs section 1979, 1977, 1976
--- OUTSIDE RECORDS SUMMARY | 2025-03-04 14:53 | XMS_ITS | Encounter Summary ---
Author Organization [facility] Address [address] [place] [address] Phone Care Team Providers Care E Commerce Marketing Analyst Name Role Phone Kenneth Flowers MD Primary Care Provider Kenneth Flowers MD Unavailable [phone] Mira Xavier MD Primary Care Provider [phone] Encounter Details Date Type Department Care Team (Late st Contact Info) Description 11/18/2018 Procedure Pass DF IMG OUTSIDE IMG [address] [place] [address] Social History Tobacco Use Types Packs/Day Years [...] on filedocumented in this encounter Care Teams E Commerce Marketing Analyst Relationship Specialty Start Date End Date Kenneth Flowers MD [address] [place] [address] [address] [place] [address] PCP - General Internal Medicine 11/05/18 02/14/25 Mira Xavier MD [address] [place] [address] PCP - General Family Medicine 02/15/25 Kenneth Flowers MD [address] [place] [address] Referring Physician Internal Medicine 11/05/18 documented as of this encounter Additional Source Comments The information contained in this document represents components of the legal health record. It is not the complete legal health record.[facility]
--- OUTSIDE RECORDS SUMMARY | 2025-03-04 14:53 | XMS_ITS | Clinical Summary ---
Author Organization [facility]ly [facility] Address [facility] [employer] [address] [address] Phone Care Team Providers Care C Software Developer Name Role Phone Kenneth Flowers MD Unavailable [phone] Mira Xavier MD Primary Care Provider [phone] Allergies Active Allergy Reactions Criticality Noted Date Comments Celecoxib Hives 11/02/2022 Lisinopril 03/02/2025 Medications levothyroxine (SYNTHROID,LEVOT HROID) 25 MCG tablet [...] Take 81 mg by mouth daily. Active losartan 10 mg/mL Susp Take 10 mg by mouth daily. Active Active Problems [...] Encounters Date Type Department Care Team Description 03/02/2025 10:30 AM EDT Office Visit [facility] Orthopedics [facility] [address] [place] [address] Roni Huynh DPM Hammer toe of right foot (Primary Dx); Hallux valgus of right foot 03/02/2025 10:15 AM EDT - 03/02/2025 11:59 PM EDT Hospital [facility] [address] [place] [address] Roni Huynh DPM Arrived Discharge Disposition: Home or Self Care 02/25/2025 Orders Only [facility] Orthopedics at [address] [place] [address] Roni Huynh DPM Pain (Primary Dx) from Last 3 Months Family History Medical History Relation Comments Lymphoma Father Relation Status Comments Father Social History Tobacco Use Types Packs/Day Years Used Date Smoking Tobacco: Former Cigarettes Q uit: 1979 Tobacco Cessation:Counseling Given: Not Answered Education Answer [...] 2.6 ) 11/18/2018 2:34 PM EDT d shelter Body Mass Index 31.49 11/18/2018 2:34 PM EDT Plan of Treatment Health Maintenance Due Date Last Done Comments TSH LEVEL 1942 DEPRESSION SCREENING 1954 PNEUMOCOCCAL VACCINES (50+ years) (1 of 1 - PCV) 1992 OSTEOPOROSIS SCREENING INITIAL (ONE-TIME) 2007 CREATININE LEVEL 03/11/2015 03/11/2014 POTASSIUM LEVEL 03/11/2015 03/11/2014 RSV VACCINE (1 - 1-dose 75+ series) 2017 INFLUENZA VACCINE (#1) 2024 , 02/08/2023, 02/17/2022, Additional history exists COVID-19 VACCINE ( season) 2025 01/30/2024, 03/28/2023, 02/17/2022, Additional history exists Adult Td,Tdap Booster 01/29/2034 01/30/2024 ZOSTER VACCINES Completed 06/17/2019, 03/21/2019 HEPATITIS A [...] Procedure Name Priority Date/Time Associated Diagnosis Comments XR FOOT 3 OR MORE VIEWS (RIGHT) Routine 03/02/2025 10:28 AM EDT Pain HISTORICAL LAB Routine 03/11/2014 4:24 PM EDT from Last 3 Months or Most Recently Relevant to Health Maintenance Results * XR FOOT 3 OR MORE VIEWS (RIGHT) (03/02/2025 10:28 AM EDT) Anatomical Region Laterality Modality Foot Right Computed Radiogr aphy 03/02/2025 1:32 PM EDT Impressions 03/02/2025 1:33 PM EDT No fracture or dislocation. Narrative 03/02/2025 1:33 PM EDT XR FOOT 3 OR MORE VIEWS (RIGHT) Referring clinician's provided indication for this examination in Epic: Pain COMPARISON: None FINDINGS: No fracture. Hallux valgus. Second and third hammertoe deformities. Plantar calcaneal spur. Achilles enthesopathy. Mineralization within the plantar fascia. Midfoot degenerative changes. No soft tissue swelling. Procedure Note Jinny Adam MD - 03/02/2025 XR FOOT 3 OR MORE VIEWS (RIGHT) Referring clinician's provided indication for this examination in Epic:Pain COMPARISON: None FINDINGS: No fracture. Hallux valgus. Second and third hammertoe deformities.Plantar calcaneal spur. Achilles enthesopathy. Mineralization within theplantar fascia. Midfoot degenerative changes. No soft tissue swelling. IMPRESSION: No fracture or dislocation. Roni Huynh DPM IMG XR LOWER EXTREMITY Fin al Result * (ABNORMAL) Historical Lab (03/11/2014 4:24 PM EDT) LDL CHOLESTEROL 149(Abnor florina H) 0 - 129 mg/dL [facility] Comment: LDL cholesterol, mg/dL (mmol/L): <100 Optimal 100-129 Near or above optimal 130-159 Borderline high 160-189 High >=190 Very high SODIUM 137 136 - 145 mmol/L [facility] POTASSIUM 4.4 3.5 - 5.2 mmol/L [facility] CHLORIDE 97(Abnorm ally L) 99 - 109 mmol/L [facility] CARBON DIOXIDE 29 20 - 31 mmol/L [facility] ANION GAP 11 4.0 - 14.0 [facility] CALCIUM 9.6 8.7 - 10.4 mg/dL [facility] GLUCOSE 88 74 - 106 mg/dL [facility] UREA NITROGEN (BUN) 18 9 - 23 mg/dl [facility] CREATININE 0.54 0.5 - 1.3 mg/dL [facility] EST GLOM FILT RATE NON- A 118.3 [facility] Comment:Units: ml/min/1.73ms q EST GLOM FILT RATE AMERI 143.1 [facility] Comment: Units: ml/min/1.73msq Reference Table for [...] TOTAL PROTEIN 6.5 5.7 - 8.2 g/dL [facility] ALBUMIN 4.2 3.5 - 4.8 g/dL [facility] AST 23 6 - 40 U/L [facility] ALT 28 10 - 49 U/L [facility] ALKALINE PHOSPHATASE 67 27 - 129 U/L [facility] TOTAL BILIRUBIN 0.2 0.0 - 1.0 mg/dL [facility] TRIGLYCERIDE 163(Abnor florina H) <150 mg/dL [facility] Comment: Normal <150 mg/dL Border-high 150-199 mg/dL High triglycerides 200-499 mg/dL Very high triglycerides >=500 mg/dL HDL CHOLESTEROL 53 >40 mg/dL [facility] Comment: HDL cholesterol, mg/dL (mmol/L): <40 Low >=60 High 03/11/2014 4:24 PM EDT 03/11/2014 4:50 PM EDT us Conversion Provider Not In Sys LAB BLOOD ORDERAB LES Final Result Performing Organization Address City/State/[facility] Co de Phone Number [facility] [address] [place] [address] from Last 3 Months or Most Recently Relevant to Health Maintenance Insurance MEDICARE PART A & B [facility] PPO MEDICARE PART A & [place] [facility] [place] [id number] MEDICARE PART A & B [facility] OUT STATE PPO MEDICARE PART A & B [employer] [place] [id number] MEDICARE PART A & [place] [phone] MEDICARE PART A & B [employer] OUT OF STATE PPO MEDICARE PART A & B [employer] [place] [place] [facility] [place] [id number] MEDICARE PART A & [place] [id number] MEDICARE PART A & B [facility] PPO Care Teams C Software Developer Relationship Specialty Start Date End Date Mira Xavier MD [address] [place] [address] PCP - General Family Medicine 02/15/25 Kenneth Flowers MD [address] [place] [address] Referring Physician Internal Medicine 11/05/18 Additional Source Comments The information contained in this document represents components of the legal health record. It is not the complete legal health record.[facility]
== END 2025-03-04 12:14 | disposition home or self-care (01) ==
LOC: HO.HUSH 11:39
PROVIDERS: PCP Internal Medicine; Visit Provider Urology
DX: N28.1 Cyst of kidney, acquired (principal)
CPT/HCPCS: 99214; G2211

== ENCOUNTER → 2025-03-04 11:39 | Outpatient (BNVA) | payer MEDICARE, BC, SELFPAY | PROVIDERS: PCP Internal Medicine; Visit Provider Urology | DX: N28.1 Cyst of kidney, acquired (principal) | CPT/HCPCS: 99212 ==